=== PATIENT | female | born 1990 | race Caucasian/White ===

== ENCOUNTER 2017-11-28 21:28 | Inpatient (IN) | payer OTHER ==
[2017-11-28] MEDS ORDERED: CEFAZOLIN 2 GM/50 ML (PMX) 50 ML IV (22:00)
[2017-11-28] MEDS ORDERED: MISOPROSTOL 200 MCG TAB PR (22:00)
[2017-11-28] MEDS ORDERED: CARBOPROST 250 MCG INJ IM (22:00)
[2017-11-28] MEDS ORDERED: METHYLERGONOVINE 0.2 MG INJ IM (22:00)
[2017-11-28] MEDS ORDERED: OXYTOCIN 30 UNITS/LR 500 ML IV (22:00)
[2017-11-28 23:23] LABS: ADD MAN DIFF? NO
[2017-11-28] MEDS: LACTATED RINGER'S 1,000 ML IV ×3 (23:23→23:53)
[2017-11-28 23:24] LABS: WHITE BLOOD COUNT 9.2 10^3/ul (4.8-10.8)
[2017-11-28 23:24] LABS: BASOPHILS % 0.2 % (0.0-2.0); EOSINOPHILS % 0.4 % (0.0-7.0); HEMATOCRIT 36.1 % (37.0-47.0); LYMPHOCYTES # 1.8 10^3/ul (0.8-2.9); LYMPHOCYTES % 19.4 % (15.0-51.0); MEAN CORPUSCULAR HEMOGLOBIN 31.2 pg (29.0-33.0); MEAN CORPUSCULAR HGB CONC 33.2 g/dl (32.0-37.0); MEAN CORPUSCULAR VOLUME 93.8 fl (82.0-101.0); MEAN PLATELET VOLUME 10.6 fl (7.4-10.4); MONOCYTE # 0.6 10^3/ul (0.3-0.9); MONOCYTES % 6.3 % (0.0-11.0); NEUTROPHIL # 6.7 10^3/ul (1.6-7.5); NEUTROPHILS % 73.2 % (39.0-77.0); PLATELET COUNT 244 10^3/UL (140-415); RED BLOOD COUNT 3.85 10^6/ul (4.20-5.40); RED CELL DISTRIBUTION WIDTH 12.7 % (11.5-14.5)
[2017-11-28 23:46] LABS: INR 0.97; PARTIAL THROMBOPLASTIN TIME 26.9 Sec (25.0-35.0)
[2017-11-28] MEDS ORDERED: BUPIVACAINE 0.75%/DEXT (SPINAL) 2 ML INJ (23:59)
[2017-11-28] MEDS ORDERED: morphine SULFATE/PF (10 MG/10 ML) INJ (23:59)
[2017-11-29] MEDS ORDERED: HYDROmorphONE 0.5 MG/0.5 ML SYG IV ×2
[2017-11-29] MEDS ORDERED: MIDAZOLAM 1 MG/ML 2 ML INJ IV
[2017-11-29] MEDS ORDERED: KETOROLAC 30 MG INJ IV
[2017-11-29] MEDS ORDERED: EPHEDrine SULFATE 50 MG/5 ML SYG IV
[2017-11-29] MEDS ORDERED: MEPERIDINE 25 MG INJ IV
[2017-11-29] MEDS ORDERED: NALOXONE (0.4 MG/ML) INJ IV
[2017-11-29] MEDS ORDERED: NALBUPHINE HCL (10 MG/1 ML) INJ IV
[2017-11-29 00:14] LABS: HEPATITIS B SURFACE ANTIGEN NEGATIVE (NEGATIVE)
[2017-11-29] MEDS ORDERED: OXYTOCIN 10 UNIT INJ ×2 (00:38→00:54)
[2017-11-29] MEDS ORDERED: ONDANSETRON 4 MG INJ (00:38)
[2017-11-29] MEDS ORDERED: MIDAZOLAM 1 MG/ML 2 ML INJ ×2 (00:38→00:40)
[2017-11-29] MEDS: CEFAZOLIN 2 GM/50 ML (PMX) 50 ML IVPB (00:55)
[2017-11-29] MEDS: ONDANSETRON 4 MG INJ IV (03:07)
[2017-11-29] MEDS: OXYTOCIN 30 UNITS/LR 500 ML IV (03:09)
[2017-11-29] MEDS ORDERED: ZOLPIDEM 5 MG TAB PO ×2 (07:00)
[2017-11-29] MEDS ORDERED: ONDANSETRON 4 MG INJ IV ×2 (07:00)
[2017-11-29] MEDS ORDERED: MISOPROSTOL 200 MCG TAB PR (07:00)
[2017-11-29] MEDS ORDERED: METHYLERGONOVINE 0.2 MG INJ IM (07:00)
[2017-11-29] MEDS ORDERED: CARBOPROST 250 MCG INJ IM (07:00)
[2017-11-29] MEDS ORDERED: DIPHENHYDRAMINE 50 MG INJ IV ×3 (07:00)
[2017-11-29] MEDS ORDERED: OXYTOCIN 30 UNITS/LR 500 ML IV (07:00)
[2017-11-29] MEDS: SENNA/DOCUSATE NA (8.6MG/50MG) TAB PO ×2 (09:00→21:35)
[2017-11-29] MEDS: LACTATED RINGER'S 1,000 ML IV ×3 (09:08→22:34)
[2017-11-29 09:24] LABS: ADD MAN DIFF? NO
[2017-11-29 09:38] LABS: BASOPHILS % 0.2 % (0.0-2.0); EOSINOPHILS % 0.1 % (0.0-7.0); HEMATOCRIT 35.5 % (37.0-47.0); HEMOGLOBIN 11.6 g/dl (12.0-16.0); LYMPHOCYTES # 1.6 10^3/ul (0.8-2.9); LYMPHOCYTES % 12.4 % (15.0-51.0); MEAN CORPUSCULAR HGB CONC 32.7 g/dl (32.0-37.0); MEAN CORPUSCULAR VOLUME 94.9 fl (82.0-101.0); MEAN PLATELET VOLUME 10.7 fl (7.4-10.4); MONOCYTE # 0.8 10^3/ul (0.3-0.9); MONOCYTES % 6.2 % (0.0-11.0); NEUTROPHIL # 10.2 10^3/ul (1.6-7.5); NEUTROPHILS % 80.6 % (39.0-77.0); PLATELET COUNT 218 10^3/UL (140-415); RED BLOOD COUNT 3.74 10^6/ul (4.20-5.40); RED CELL DISTRIBUTION WIDTH 12.6 % (11.5-14.5)
[2017-11-29 09:38] LABS: WHITE BLOOD COUNT 12.6 10^3/ul (4.8-10.8)
[2017-11-29] MEDS: LANOLIN 7 GM TUBE TOP (11:45)
[2017-11-29 15:15] LABS: RAPID PLASMA REAGIN NONREACTIVE (NR)
[2017-11-29] MEDS: IBUPROFEN 600 MG TAB PO (23:21)
[2017-11-30] MEDS: LACTATED RINGER'S 1,000 ML IV ×3 (06:49→22:49)
[2017-11-30] MEDS: IBUPROFEN 600 MG TAB PO ×3 (06:56→17:46)
[2017-11-30] MEDS: SENNA/DOCUSATE NA (8.6MG/50MG) TAB PO ×2 (09:12→21:36)
[2017-11-30 10:16] LABS: ADD MAN DIFF? NO
[2017-11-30 10:20] LABS: WHITE BLOOD COUNT 12.4 10^3/ul (4.8-10.8)
[2017-11-30 10:20] LABS: BASOPHILS % 0.2 % (0.0-2.0); EOSINOPHILS # 0.1 10^3/ul (0.0-0.5); EOSINOPHILS % 0.6 % (0.0-7.0); HEMOGLOBIN 11.4 g/dl (12.0-16.0); LYMPHOCYTES # 1.3 10^3/ul (0.8-2.9); LYMPHOCYTES % 10.6 % (15.0-51.0); MEAN CORPUSCULAR HEMOGLOBIN 30.7 pg (29.0-33.0); MEAN CORPUSCULAR HGB CONC 32.6 g/dl (32.0-37.0); MEAN CORPUSCULAR VOLUME 94.3 fl (82.0-101.0); MEAN PLATELET VOLUME 10.8 fl (7.4-10.4); MONOCYTE # 0.9 10^3/ul (0.3-0.9); MONOCYTES % 6.9 % (0.0-11.0); NEUTROPHIL # 10.1 10^3/ul (1.6-7.5); NEUTROPHILS % 81.2 % (39.0-77.0); PLATELET COUNT 235 10^3/UL (140-415); RED BLOOD COUNT 3.71 10^6/ul (4.20-5.40); RED CELL DISTRIBUTION WIDTH 12.9 % (11.5-14.5)
[2017-11-30] MEDS: OXYCODONE/ACETAMINOPHEN (5/325) TAB PO (21:37)
[2017-12-01] MEDS: IBUPROFEN 600 MG TAB PO ×4 (00:39→18:35)
[2017-12-01] MEDS: LACTATED RINGER'S 1,000 ML IV (06:29)
[2017-12-01] MEDS: OXYCODONE/ACETAMINOPHEN (5/325) TAB PO ×3 (06:36→22:13)
[2017-12-01] MEDS: SENNA/DOCUSATE NA (8.6MG/50MG) TAB PO ×2 (11:22→20:20)
[2017-12-02] MEDS: IBUPROFEN 600 MG TAB PO ×3 (00:21→11:31)
[2017-12-02] MEDS: OXYCODONE/ACETAMINOPHEN (5/325) TAB PO (03:27)
[2017-12-02] MEDS: SENNA/DOCUSATE NA (8.6MG/50MG) TAB PO (08:59)
[2017-12-02] MEDS: DIPHTH/TET/ACEL PERTUSS (ADULT) 0.5 ML VIAL IM* (08:59)
== END 2017-12-02 14:35 | disposition home or self-care (01) | DRG 766 ==
LOC: OBT 21:28 → L-D 11-29 00:52 → PP1 11-29 04:45 → OBT 22:30 → L-D 21:42
PROVIDERS: Obstetrics & Gynecology
PROC: 10D00Z1 Extraction of Products of Conception, Low, Open Approach (ICD-10-PCS; principal; 2017-11-28)
PROC: 3E033VJ Introduction of Other Hormone into Peripheral Vein, Percutaneous Approach (ICD-10-PCS; 2017-11-28)
DX: O34.211 Maternal care for low transverse scar from previous cesarean delivery (principal); O69.81X0 Labor and delivery complicated by cord around neck, without compression, not applicable or unspecified; Z3A.38 38 weeks gestation of pregnancy; Z37.0 Single live birth
CPT/HCPCS: 85025; 85610; 85730; 86592; 86850; 86900; 86901; 87340; 99464